=== PATIENT | male | born 1985 | race Hispanic/Latino ===

== ENCOUNTER 2023-03-14 03:09 | Emergency (ER) | payer SELFPAY ==
--- OUTSIDE RECORDS SUMMARY | 2023-03-14 03:12 | XMS REPORT | Continuity of Care Document ---
:[address] [facility] t Address [address] [place] [address] [place] [id number] Care Team Providers Name Role Phone [place], [place] DEPT OF Primary Care Physician Unavailable GLORIA NAYAK Attending Clinician Unavailable Gloria Shin Attending Clinician GLORIA NAYAK Admitting Clinician Unavailable Problems This patient has no known problems. Allergies, Adverse Reactions, Alerts Allergy Allergy Status Severity Reaction(s) Onset Inactive Treating Comm ents Source Name Type Date Date Clinician NO KNOWN Drug Active [facility] [place] [facility] [place] Social History Social Habit Start Date Stop Date Quantity Comments Source Exposure to 2022-09-18 2022-09-28 Not sure [facility] SARS-CoV-2 (event) 00:00:00 14:07:00 Medica l Branch Sex Assigned At [birth year] [facility] 00:00:00 00:00:00 Medical Branch Smoking Status Start Date Stop Date Source Tobacco smoking consumption [facility] Medical unknown Branch Medications Ordered Filled Start Stop Current Ordering Indication Dosage Frequency Signature Comments Components Source Medication Medication Date Date Medication? Clinician (SIG) Name Name cephALEXin 2022- No [id number] 500mg Take 1 Univers (KEFLEX) 09-28 05-07 capsule by ity of 500 mg 00:00: 04:59 mouth 4 [place] capsule 00 :00 (four) Medical times Branch daily for 5 days. azithromyci Yes 250mg Take 1 Uni vers n 250 mg 9-05 tablet by ity of tablet 00:00: mouth [place] 00 SEE-INSTRU Medical CTIONS. Branch Take 500 mg day 1, then 250 mg days 2 to 5. sodium 2015-05 Yes 1{spray Use 1 Univers chloride 0-25 } [place] in ity of (SALINE 00:00: each [place] NOSE) 0.65 00 nostril as Med ical % nasal needed for Branch spray Pain (scale 4-6). traMADOL 2015-05 Yes 50mg Take 1 Univers (ULTRAM) 50 0-25 tablet by ity of mg tablet 00:00: mouth [place] 00 every 6 Medical (six) Branch hours as needed for Pain (scale 4-6). Max Bauer PA-C / Dion Mccann MD LUCILA# [id number] DPS# [id number] x Lic.# [id number] NPI# [id number] Vital Signs Vital Name Observation Time Observation Value Comments Source Systolic blood 2022-09-28 19:09:00 130 mm[Hg] [facility] Diastolic blood 2022-09-28 19:09:00 73 mm[Hg] [facility] Heart rate 2022-09-28 19:09:00 94 /min [facility] Body temperature 2022-09-28 19:09:00 36.22 [facility] Respiratory rate 2022-09-28 19:09:00 18 /min [facility] Body height 2022-09-28 19:09:00 180.3 cm [facility] Body weight 2022-09-28 19:09:00 79.379 kg [facility] BMI 2022-09-28 19:09:00 24.41 kg/m2 [facility] Oxygen saturation in 2022-09-28 19:09:00 100 /min [facility] Arterial blood by [facility] Pulse oximetry Branch Procedures Procedure Date / Time Performed Performing Clinician Amy e FOREIGN BODY REMOVAL - 2022-09-28 21:52:31 Gloria Nayak [facility] ASSIGNMENT OF BENEFITS 2022-09-28 20:17:37 Doctor Unassigned, No [facility] Name [facility] XR CHEST 2 VW 2022-09-28 19:36:51 Gloria Nayak [facility] NOTICE OF PRIVACY 2022-09-28 18:51:19 Doctor Unassigned, No Univ ersity [facility] PRACTICES Name [facility] Branch CONSENT/REFUSAL FOR 2022-09-28 18:50:52 [facility], [facility] Name [facility] Branch TREATMENT Encounters Start End Encounter Admission Attending Care Care Encounter Source Date/Time Date/Time Type Type Clinicians Facility Department ID 2022-09-28 2022-09-28 Emergency X NAEL [facility] ERT [id number] Univers 14:16:00 17:09:00 GLORIA gonzalez [facility] 2022-09-28 2022-09-28 Emergency Nael [facility] [id number] Univers 14:16:00 17:09:00 Gloria [facility] [id number] i [facility] [id number] [facility] [id number] [facility] 084 Branch Results This patient has no known results.
--- NOTE | 2023-03-14 04:58 | ER ---
Nurse's Notes [facility] Name: Andrey Rice Jr Age: 37 yrs Sex: Male : 1985 Arrival Date: 03/14/2023 Time: 03:09 Bed 6 Private MD: Diagnosis: Unspecified injury of head, initial encounter;Acute fall at home, posterior head injury, mild to moderate with concussion, acute cervical sprain, acute right shoulder contusion Presentation: 03/14 03:14 Chief complaint: EMS states: Pt was at home, his brother went to wake him up. He fell jb4 back, not sure if he had and LOC or injury. Pt was somnolent upon EMS arrival. Coronavirus screen: At this time, the client does not indicate any symptoms associated with coronavirus-19. Ebola Screen: No symptoms or risks identified at this time. Initial Sepsis Screen: Does the patient meet any 2 criteria? No. Patient's initial sepsis screen is negative. Does the patient have a suspected source of infection? No. Patient's initial sepsis screen is negative. Risk Assessment: Do you want to hurt yourself or someone else? Patient reports no desire to harm self or others. Onset of symptoms was March 14, 2023. Transition of care: patient was not received from another setting of care. 03:14 Method Of Arrival: EMS: [facility] jb4 03:14 Acuity: JOSE LUIS 3 jb4 Historical: - Allergies: 03:18 No Known Allergies; jb4 - PMHx: 03:18 Hypertensive disorder; jb4 - Social history:: Smoking status: Patient denies any tobacco usage or history of. Patient uses alcohol, on a daily basis. - Family history:: not pertinent. Screenin:30 [facility] ED Fall Risk Assessment (Adult) History of falling in the last 3 months, jb4 including since admission No falls in past 3 months (0 pts) Confusion or Disorientation No (0 pts) Score/Fall Risk Level 0 - 2 = Low Risk Oriented to surroundings, Maintained a safe environment. Abuse screen: Denies threats or abuse. Nutritional screening: No deficits noted. Tuberculosis screening: No symptoms or risk factors identified. Assessment: 03:30 General: Appears in no apparent distress. comfortable, Behavior is calm, cooperative, jb4 appropriate for age. Pain: Complains of pain in neck, right shoulder Pain does not radiate. Neuro: Level of Consciousness is awake, alert, obeys commands, Oriented to person, place, time, situation. Cardiovascular: Patient's skin is warm and dry. Respiratory: Airway is patent Respiratory effort is even, unlabored, Respiratory pattern is regular, symmetrical. GI: No signs and/or symptoms were reported involving the gastrointestinal system. : No signs and/or symptoms were reported regarding the genitourinary system. EENT: No signs and/or symptoms were reported regarding the EENT system. Derm: Skin is intact, Skin is pink, warm \T\ dry. Musculoskeletal: Circulation, motion, and sensation intact. Range of motion: intact in all extremities. 05:00 Reassessment: Patient appears in no apparent distress at this time. Patient and/or jb4 family updated on plan of care and expected duration. Pain level reassessed. Patient is alert, oriented x 3, equal unlabored respirations, skin warm/dry/pink. Vital Signs: 03:14 BP 126 / 87; Pulse 65; Resp 16; Temp 97.7; Pulse Ox 98% on R/A; Weight 69.85 kg (M); jb4 04:30 BP 141 / 86; Pulse 78; Resp 16; Pulse Ox 100% on R/A; jb4 ED Course: 03:13 Patient arrived in ED. jb4 03:16 Triage completed. jb4 03:18 Tae Baird MD is Attending Physician. sp4 03:18 Arm band placed on right wrist. jb4 03:39 Alcohol Level Sent. wm 03:56 CT Traumagram (Head C Spine CAP wo con) In Process Unspecified. EDMS 04:30 Patient has correct armband on for positive identification. Bed in low position. Call jb4 light in reach. Side rails up X 1. 05:15 Sher Ragland, MERE is Primary Nurse. jb4 05:19 No provider procedures requiring assistance completed. IV discontinued, intact, jb4 bleeding controlled, No redness/swelling at site. Pressure dressing applied. Administered Medications: 04:57 Drug: Ketorolac IVP 30 mg IVP once Route: IVP; Site: right antecubital; jb4 05:15 Drug: Cyclobenzaprine PO 10 mg PO once Route: PO; jb4 Medication: 04:30 VIS not applicable for this client. jb4 Outcome: 04:58 Discharge ordered by . sp4 05:19 Discharged to home ambulatory, with family, jb4 05:19 Condition: stable 05:19 Discharge instructions given to patient, Instructed on discharge instructions, follow up and referral plans. no drinking with medication, no driving heavy equipment, medication usage, Demonstrated understanding of instructions, follow-up care, medications, Prescriptions given X 1, 05:20 Patient left the ED. jb4 Signatures: Dispatcher [employer] EDDE Sher Ragland RN RN jb4 Juanis Riggins Sergey, MD MD sp4 Corrections: (The following items were deleted from the chart) 03:18 03:14 BP 126 / 87; Pulse 65bpm; Resp 16bpm; Pulse Ox 98% RA; jb4 jb4
--- NOTE | 2023-03-14 04:58 | EDPHYS ---
Physician Documentation [facility] Name: Andrey Rice Jr Age: 37 yrs Sex: Male : 1985 Arrival Date: 03/14/2023 Time: 03:09 Bed 6 Private MD: ED Physician Tae Baird HPI: 03/14 03:18 This 37 yrs old Male presents to ER via EMS with complaints of fall, neck sp4 pain, head injury . 03:48 Patient arrives with EMS after fall at home. Reported Alcohol intoxication. Patient sp4 fell backwards and developed headache, neck pain and right shoulder pain. Reported also generalized weakness. . Historical: - Allergies: 03:18 No Known Allergies; jb4 - PMHx: 03:18 Hypertensive disorder; jb4 - Social history:: Smoking status: Patient denies any tobacco usage or history of. Patient uses alcohol, on a daily basis. - Family history:: not pertinent. ROS: 04:59 Constitutional: Negative for fever, chills, and weight loss, positive acute fall, sp4 positive head injury, positive headache, positive right shoulder pain, positive neck pain 04:59 All other systems are negative, Exam: 04:59 Constitutional: This is a well developed, well nourished patient who is awake, alert, sp4 and in no acute distress. Patient arrived with EMS with a c-collar in place Head/Face: Normocephalic, atraumatic. Eyes: Pupils equal round and reactive to light, extra-ocular motions intact. Lids and lashes normal. Conjunctiva and sclera are not injected. Cornea within normal limits. Periorbital areas with no swelling, redness, or edema. ENT: Nares patent. No nasal discharge, no septal abnormalities noted. Tympanic membranes are normal and external auditory canals are clear. Oropharynx with no redness, swelling, or masses, exudates, or evidence of obstruction, uvula midline. Mucous membranes moist. Neck: Trachea midline, no thyromegaly or masses palpated, and no cervical lymphadenopathy. Supple, full range of motion without nuchal rigidity, or vertebral point tenderness. Chest/axilla: Normal chest wall appearance and motion. Nontender with no deformity. No lesions are appreciated. Cardiovascular: Regular rate and rhythm with a normal S1 and S2. No gallops, murmurs, or rubs. Normal PMI, no JVD. No pulse deficits. Respiratory: Lungs have equal breath sounds bilaterally, clear to auscultation and percussion. No rales, rhonchi or wheezes noted. No increased work of breathing, no retractions or nasal flaring. Abdomen/GI: Soft, non-tender, with normal bowel sounds. No distension or tympany. No guarding or rebound. No evidence of tenderness throughout. Back: No spinal tenderness. No costovertebral tenderness. Male : Normal genitalia with no discharge or lesions. Skin: Warm, dry with normal turgor. Normal color with no rashes, no lesions, and no evidence of cellulitis. MS/ Extremity: Pulses equal, no cyanosis. Neurovascular intact. Full, normal range of motion. Neuro: Awake and alert, GCS 15, oriented to person, place, time, and situation. Cranial nerves II-XII grossly intact. Motor strength 5/5 in all extremities. Sensory grossly intact. Psych: Awake, alert, with orientation to person, place and time. Behavior, mood, and affect are within normal limits Vital Signs: 03:14 BP 126 / 87; Pulse 65; Resp 16; Temp 97.7; Pulse Ox 98% on R/A; Weight 69.85 kg (M); jb4 04:30 BP 141 / 86; Pulse 78; Resp 16; Pulse Ox 100% on R/A; jb4 MDM: 03:28 Patient medically screened. sp4 04:50 ED course: CT for Trauma evaluation FINDINGS: Brain: No significant white matter sp4 changes. No focal mass effect. Monsivais-white matter differentiation is within normal limits. No hemorrhage. Ventricles: No ventriculomegaly or midline shift. Extra-axial spaces: No extra-axial collection or hemorrhage. Paranasal sinuses and mastoid air cells: Well-aerated Bones: Unremarkable Soft tissues: Unremarkable IMPRESSION: No evidence of acute intracranial pathology. PROCEDURE: Head C Spine Cap Wo Con CLINICAL HISTORY: fall, head , shoulder injury TECHNIQUE: Contiguous axial CT images obtained through the cervical spine without IV contrast. Coronal and sagittal reformatted images also provided. COMPARISON: None available for comparison FINDINGS: Vertebra: No acute fracture or subluxation. Degenerative changes: Intervertebral disc spaces are fairly well maintained. No critical canal stenosis. Foramina appear patent. Prevertebral soft tissues: Unremarkable Lung apices: Clear IMPRESSION: No acute cervical spine fracture. IPROCEDURE: TECHNIQUE: COMPARISON: No prior exams provided for comparison. FINDINGS: Lungs: No focal consolidation. Airways are patent. Pleura: No effusion. No pneumothorax. Heart and pericardium: The heart is normal in size. No pericardial effusion. Mediastinum and diamond: Evaluation of the mediastinum and vessels is limited without intravenous contrast. Lower neck and chest wall: Unremarkable Vessels: Unremarkable Bones: Unremarkable Evaluation of abdominal viscera is limited without intravenous contrast. Liver: Unremarkable Gallbladder and biliary system: Unremarkable Pancreas: Unremarkable Spleen: Unremarkable Adrenals: Unremarkable Kidneys: No evidence of urolithiasis or obstructive uropathy. Gl : No obstruction. No appreciable mucosal thickening. Appendix: No findings to suggest acute appendicitis. Urinary bladder: Unremarkable Reproductive: Unremarkable as visualized Lymph nodes: No pathologically enlarged lymph nodes. Peritoneum: No focal fluid collection. No free air. Vessels: No abdominal aortic aneurysm. Abdominal wall: Unremarkable Bones: Unremarkable IMPRESSION: No evidence of acute injury in the chest, abdomen or pelvis. Limited evaluation without intravenous contrast.. 04:59 Differential Diagnosis altered mental status, sepsis, flu, Concussion. Data reviewed: sp4 vital signs, nurses notes, EMS record, lab test result(s), radiologic studies, CT scan. Consideration of Admission/Observation Escalation of care including admission/observation considered. ED course: CT head, C-spine, chest, abdomen, pelvis negative for acute evidence of trauma. Patient stable for discharge home, patient was able to stand up and ambulate without difficulty. No signs of neurologic deficits. . 03/14 03:26 Order name: Alcohol Level; Complete Time: 04:14 sp4 03/14 03:25 Order name: CT Traumagram (Head C Spine CAP wo con) sp4 03/14 03:25 Order name: Labs collected and sent; Complete Time: 03:39 sp4 Administered Medications: 04:57 Drug: Ketorolac IVP 30 mg IVP once Route: IVP; Site: right antecubital; jb4 05:15 Drug: Cyclobenzaprine PO 10 mg PO once Route: PO; jb4 Disposition Summary: 03/14/23 04:58 Discharge Ordered Notes: Location: Home sp4 Problem: new sp4 Symptoms: have improved sp4 Condition: Stable sp4 Diagnosis - Unspecified injury of head, initial encounter sp4 - Acute fall at home, posterior head injury, mild to moderate with concussion, acute sp4 cervical sprain, acute right shoulder contusion Followup: sp4 - With: Private Physician - When: 7 - 10 days - Reason: Recheck today's complaints Discharge Instructions: - Discharge Summary Sheet sp4 - Head Injury, Adult sp4 Forms: - Patient Portal Instructions sp4 Prescriptions: - Cyclobenzaprine 10 mg Oral Tablet - take 1 tablet ORAL route every 8 hours As needed; 30 tablet; Refills: 0, sp4 Product Selection Permitted Signatures: Dispatcher [employer] EDSher Khan, RN RN jb4 Tae Baird MD MD sp4 Corrections: (The following items were deleted from the chart) 03:21 03:19 Head Brain Wo Cont+CT.RAD.BRZ ordered. EDMS EDMS 03:22 03:19 C Spine Wo Con+CT.RAD.BRZ ordered. EDMS EDMS 03:30 03:23 Head C Spine Mpr Wo Con ordered. EDMS EDMS
[2023-03-14] MEDS ORDERED: KETOROLAC 30 MG/ML INJ ONE (05:07)
[2023-03-14] MEDS ORDERED: CYCLOBENZAPRINE 10 MG TAB ONE (05:20)
[2023-03-14 05:25] VITALS: TEMP 97.7
[2023-03-14 05:26] VITALS: BP 141/86; O2SAT 100
--- NOTE | 2023-03-15 17:55 | RAD REPORT ---
CLINICAL HISTORY: Fall, head , shoulder injury TECHNIQUE: Contiguous axial CT images obtained through the brain without IV contrast. Coronal and sa gittal reformatted images were provided. This exam was performed according to our departmental dose-optimization program, which includes autom ated exposure control, adjustment of the mA and/or kV according to patient size and/or use of iterati ve reconstruction technique. COMPARISON: None available for comparison FINDINGS: Brain: No significant white matter changes. No focal mass effect. Monsivais-white matter differ entiation is within normal limits. No hemorrhage. Ventricles: No ventriculomegaly or midline shift. Extra-axial spaces: No extra-axial collection or hemorrhage. Paranasal sinuses and mastoid air cells: Well-aerated Bones: Unremarkable Soft tissues: Unremarkable IMPRESSION: No evidence of acute intracranial pathology. EXAM DESCRIPTION: Head C Spine Cap Wo Con CLINICAL HISTORY: Fall, head , shoulder injury TECHNIQUE: Contiguous axial CT images obtained through the cervical spine without IV contrast. Cor onal and sagittal reformatted images also provided. This exam was performed according to our departmental dose-optimization program, which includes autom ated exposure control, adjustment of the mA and/or kV according to patient size and/or use of iterati ve reconstruction technique. COMPARISON: None available for comparison FINDINGS: Vertebra: No acute fracture or subluxation. Degenerative changes: Intervertebral disc spaces are fairly well maintained. No critical canal stenos is. Foramina appear patent. Prevertebral soft tissues: Unremarkable Lung apices: Clear IMPRESSION: No acute cervical spine fracture. IPROCEDURE: Head C Spine Cap Wo Con CLINICAL HISTORY: Fall, head , shoulder injury TECHNIQUE: Contiguous axial images obtained through the chest , abdomen and pelvis without IV contra st. Coronal and sagittal reformatted images provided. This exam was performed according to our departmental dose-optimization program, which includes autom ated exposure control, adjustment of the mA and/or kV according to patient size and/or use of iterati ve reconstruction technique. COMPARISON: No prior exams provided for comparison. FINDINGS: Lungs: No focal consolidation. Airways are patent. Pleura: No effusion. No pneumothorax. Heart and pericardium: The heart is normal in size. No pericardial effusion. Mediastinum and diamond: Evaluation of the mediastinum and vessels is limited without intravenous contra st. Lower neck and chest wall: Unremarkable Vessels: Unremarkable Bones: Unremarkable Evaluation of abdominal viscera is limited without intravenous contrast. Liver: Unremarkable Gallbladder and biliary system: Unremarkable Pancreas: Unremarkable Spleen: Unremarkable Adrenals: Unremarkable Kidneys: No evidence of urolithiasis or obstructive uropathy. Gl : No obstruction. No appreciable mucosal thickening. Appendix: No findings to suggest acute appendicitis. Urinary bladder: Unremarkable Reproductive: Unremarkable as visualized Lymph nodes: No pathologically enlarged lymph nodes. Peritoneum: No focal fluid collection. No free air. Vessels: No abdominal aortic aneurysm. Abdominal wall: Unremarkable Bones: Unremarkable IMPRESSION: No evidence of acute injury in the chest, abdomen or pelvis. Limited evaluation without intravenous contrast. Electronically signed by: Ricky Mistry MD 03/14/2023 4:40 AM CDT Due to temporary technical issues with the PACS/Fluency reporting system, reports are being signed by the in house radiologists without review as a courtesy to insure prompt reporting. The interpreting radiologist is fully responsible for the content of the report.
== END 2023-03-14 05:20 | disposition home or self-care (01) ==
LOC: ER 03:09
DX: S06.0X0A Concussion without loss of consciousness, initial encounter (principal); S13.9XXA Sprain of joints and ligaments of unspecified parts of neck, initial encounter; S40.011A Contusion of right shoulder, initial encounter; W18.30XA Fall on same level, unspecified, initial encounter; Y92.009 Unspecified place in unspecified non-institutional (private) residence as the place of occurrence of the external cause
CPT/HCPCS: 36415; 70450; 71250; 72125; 82077; 96374; 99284

== ENCOUNTER 2024-09-23 17:51 | Emergency (ER) | payer OTHER ==
--- OUTSIDE RECORDS SUMMARY | 2024-09-23 17:55 | XMS REPORT | Continuity of Care Document ---
Author Name Unknown Address [address] [facility] [address] [place] [address] [facility] [address] [facility] [address] [place] [address] Care Team Providers Care Commercial Marketing Specialist Name Role Phone JEROMY JARAMILLO Primary Care Physician UnavailPERRI Corea Attending Clinician Unavailab ALBIN Hensley Attending Clinician Unavailable EVA GIBBS Attending Clinician Unavailable Eva Gibbs NP Attending Clinician [phone] Orlin Hale DO Attending Clinician [phone] Kate Peoples DO Attending Clinician MATT NAYAK Attending Clinician Unavailable Matt Shin Attending Clinician [phone] Kate Peoples DO Admitting Clinician [phone] MATT NAYAK Admitting Clinician Unavailable Payers Payer Name Policy Type Policy Number Effective Date Expirati on Date Source KANIKA Mcgee [employer] 94 9 [id number] 2024 00:00:00 SE Ruff/ CRISTINE THAPA [id number] 2023 00:00:00 [facility] JONES COPAY FOCUS 9 [id number] 2023 00:00:00 Problems Condition Name Condition Details Condition Category Status Onset Date Resolution Date Last Treatment Date Treating Clinician Comments Source 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 2023-05 0 00:00: 00 Cristine hart Altered mental status, unspecifie d altered mental status type Altered mental status, unspecifie d altered mental status type Disease Active 10-14 00:00: 00 [facility] Chronic left shoulder pain Chronic left shoulder pain Disease Active 10-05 00:00: 00 Cristine hart Chronic low back pain Chronic low back pain Disease Active 10-05 00:00: 00 Cristine hart Anxiety Anxiety Disease Active 10-05 00:00: 00 Cristine Taylora hailey Allergies, Adverse Reactions, Alerts Allergy Name Allergy Type Status Severity Reaction(s) Onset Date Inactive Date Treating Clinician Comments Source NO KNOWN ALLERGIE S Drug Class Active [facility] Social History Social Habit Start Date Stop Date Quantity Comments Source History of tobacco use Passive smoker [facility] beverage intake 2024-03-03 00:00:00 2024-03-03 00:00:00 Current drinker of alcohol (finding) [facility] History of Social function 2024-03-03 00:00:00 2024-03-03 00:00:00 [facility] Tobacco use and exposure 2023-10-15 00:00:00 2023-10-15 00:00:00 Smokeless tobacco non-user [facility] Exposure to SARS-CoV-2 (event) 2022-09-18 00:00:00 2022-09-28 14:07:00 Not sure [facility] Sex 2022-07-22 21:26:11 2022-07-22 21:26:11 Male (finding) Cristine Senior - External Sex assigned at 1985 00:00:00 1985 00:00:00 Cristine Kay External Smoking Status Start Date Stop Date Source Tobacco smoking consumption unknown [facility] Smokes tobacco daily 2023-10-15 00:00:00 [facility] Ex-smoker 2023-10-06 00:00:00 2023-10-06 00:00:00 Cristine Carvajal Medications Ordered Medication Name Filled Medication Name Start Date Stop Date Current Medication? Ordering Clinician Indication Dosage Frequency Signature (SIG) Comments Components Source Trazodone HCl 50 MG oral Tablet 2023-05 00:00: 00 Yes [id number] 50mg QD Take 1 tablet (50 mg total) by mouth nightly No driving on medication . Cristine hart Ibuprofen (MOTRIN) 800 MG oral Tablet 2023-05 00:00: 00 Yes [id number] 800mg Take 1 tablet (800 mg total) by mouth every 12 hours as needed for pain Please take with food. Cristine hart busPIRone HCl 5 MG oral Tablet 2023-05 00:00: 00 Yes [id number] 5mg Q.5D Take 1 tablet (5 mg total) by mouth 2 times daily as needed. Cristine hart Trazodone HCl 50 MG oral Tablet 02-20 00:00: 00 03-08 00:00 :00 No [id number] 50mg QD Take 1 tablet (50 mg total) by mouth nightly No driving on medication . Cristine hart ondansetron (ZOFRAN (PF)) injection 4 mg 10-15 23:50: 45 Yes 4mg 4 mg, Slow IV Push, Q6HPRN, Nausea and Vomiting (N/V), Starting on 10/16/23 at 1850, Doses of ondansetro n 16 mg and above need to be administer ed via IV piggyback. For Dose >=24mg ECG monitoring is advisable. [facility] LORazepam (ATIVAN) injection 1 mg 10-15 19:29: 04 Yes 1mg 1 mg, Slow IV Push, Q4HPRN, Starting on 10/16/23 at 1429, Until Discontinu ed, Routine, Agitation, Anxiety [facility]- sulbactam (UNASYN) 3 g in NaCl 0.9% (NS) 100 mL MINI-BAG 10-15 17:30: 00 10-20 17:29 :00 No 3g 3 g, IV Piggyback, Q6H ABX, 20 doses, First dose on 10/16/23 at 1230, Last dose on Gini 10/21/23 at 0630, Administer over 30 Minutes, 100 mL, Reason for Anti-Infec tive: Empiric Therapy for Suspected Infection, Empiric Therapy Site: Respirator y, Duration of therapy: 5 days [facility] acetaminoph en (OFIRMEV) IV piggyback 1,000 mg 10-15 17:30: 00 10-15 17:06 :00 No 1000mg 1,000 mg, IV Piggyback, at 400 mL/hr Administer over 15 Minutes, ONCE, 1 dose, On 10/16/23 at 1230, Routine, Is the patient strict NPO and unable to tolerate oral medication s? Yes [facility] acetaminoph en (TYLENOL) 160 mg/5 mL oral liquid 650 mg 10-15 16:26: 21 Yes 650mg 650 mg, Oral, Q6HPRN, Starting on 10/16/23 at 1126, Until Discontinu ed, Routine, Pain (scale 1-3), Temp > 38.5 C [facility] FENTanyl PF (SUBLIMAZE (PF)) injection 100 mcg 10-15 09:45: 00 10-15 08:59 :00 No 100ug 100 mcg, Slow IV Push, ONCE, 1 dose, On 10/16/23 at 0445, Routine [facility] midazolam (PF) (VERSED) STD 50 mg in NaCl 0.9% (NS) 50 mL infusion RTU 10-15 08:54: 24 10-15 19:29 :15 No 1mg/h 1-10 mg/hr (1-10 mL/hr), IV Infusion, TITRATE, Sedation-R ASS score (-1 to -2), Starting on 10/16/23 at 0354, Initiate infusion at 2 mg/hr and titrate by 1 mg/hr every 3 minutes to 10 minutes to goal sedation score. Maximum dose = 10 mg/hr. If goal not maintained at maximum allowed dose, contact prescriber . [facility] fentaNYL PF (SUBLIMAZE) STD 2,500 mcg in NaCl 0.9% (NS) 250 mL infusion RTU 10-15 08:54: 16 10-15 19:29 :15 No 25ug/h 25-200 mcg/hr (2.5-20 mL/hr), IV Infusion, TITRATE, Sedation-R ASS score (-1 to -2), Starting on Wed10/16/23 at 0354, Initiate infusion at 25 mcg/hr. Titrate by 50 mcg/hr every 1 minute to 15 minutes to identified goal pain and/or sedation scores. Maximum dose = 200 mcg/hr. If goal not maintained at maximum allowed dose, contact prescriber . [facility] famotidine (PEPCID (PF)) injection 20 mg 10-15 01:00: 00 10-20 00:59 :00 No 20mg 20 mg, Slow IV Push, Q12H, 10 doses, First dose on Wed10/15/23 at 2000, Last dose on Wed10/20/23 at 0800, Routine, Indication for use: Mechanical Ventilatio n > 48 hours [facility] glucagon (GLUCAGEN DIAGNOSTIC KIT) injection 1 mg 10-14 23:41: 00 Yes 1mg 1 mg, Intramuscu lar, PRN, Starting on Wed10/15/23 at 1841, Until Discontinu ed, EDWARD, Blood Glucose < or = 70 mg/dL and patient is NPO, unable to swallow or has mental changes. [facility] dextrose 50 % in water (D50W) injection 25 mL 10-14 23:41: 00 Yes 25mL 25 mL, Slow IV Push, PRN, Starting on Wed10/15/23 at 1841, Until Discontinu ed, EDWARD, Blood Glucose < or = 70 mg/dL and patient is NPO, unable to swallow or has mental status changes. [facility] lactated ringers IV infusion 1,000 mL 10-14 23:00: 00 10-16 03:30 :40 No 1000mL at 100 mL/hr, 1,000 mL, IV Infusion, CONTINUOUS , Starting on Wed10/15/23 at 1800, Until 10/16/23 at 2230, Routine [facility] midazolam (VERSED) injection 4 mg 10-14 22:45: 00 10-14 21:59 :00 No 4mg 4 mg, IV Push, ONCE, 1 dose, On Wed10/15/23 at 1745, Routine [facility] midazolam (PF) (VERSED) STD 50 mg in NaCl 0.9% (NS) 50 mL infusion RTU 10-14 22:31: 00 10-14 22:36 :42 No 1mg/h 1-10 mg/hr (1-10 mL/hr), IV Infusion, TITRATE, Sedation-R ASS score (0 to -1), Starting on Wed10/15/23 at 1731, Initiate infusion at 1 mg/hr and titrate by 1 mg/hr every 3 minutes to 10 minutes to goal sedation score. Maximum dose = 10 mg/hr. If goal not maintained at maximum allowed dose, contact prescriber . [facility] enoxaparin (LOVENOX) injection 40 mg 10-14 22:00: 00 Yes 40mg 40 mg, Subcutaneo us, DAILY, First dose on Wed10/15/23 at 1700, Until Discontinu ed, Routine [facility] fentaNYL PF (SUBLIMAZE) STD 2,500 mcg in NaCl 0.9% (NS) 250 mL infusion RTU 10-14 20:23: 20 10-15 08:54 :34 No 25ug/h 25-200 mcg/hr (2.5-20 mL/hr), IV Infusion, TITRATE, Sedation-R ASS score (0 to -1), Starting on Wed10/15/23 at 1523, Initiate infusion at 25 mcg/hr. Titrate by 50 mcg/hr every 1 minute to 15 minutes to identified goal pain and/or sedation scores. Maximum dose = 200 mcg/hr. If goal not maintained at maximum allowed dose, contact prescriber . [facility] NaCl 0.9% (NS) bolus infusion 1,000 mL 10-14 19:30: 00 10-14 21:33 :00 No 1000mL at 999 mL/hr, 1,000 mL, IV Infusion, ONCE, 1 dose, On Wed10/15/23 at 1430, STAT [facility] Trazodone HCl 50 MG oral Tablet 10-05 00:00: 00 Yes [id number] 50mg Take 1 tablet (50 mg total) by mouth nightly No driving on medication . Cristine hart Ibuprofen (MOTRIN) 800 MG oral Tablet 10-05 00:00: 00 03-08 00:00 :00 No [id number] 800mg Take 1 tablet (800 mg total) by mouth every 12 hours as needed for pain. Cristine hart Baclofen 10 MG oral Tablet 10-05 00:00: 00 03-08 00:00 :00 No [id number] 10mg Q.[id number] 3D Take 1 tablet (10 mg total) by mouth 3 times daily No driving with medication . Cristine hart cephALEXin (KEFLEX) 500 mg capsule 09-28 00:00: 00 10-04 04:59 :00 No [id number] 500mg Take 1 capsule by mouth 4 (four) times daily for 5 days. [facility] azithromyci n 250 mg tablet 02-02 00:00: 00 Yes 250mg Take 1 tablet by mouth SEE-INSTRU CTIONS. Take 500 mg day 1, then 250 mg days 2 to 5. [facility] sodium chloride (SALINE NOSE) 0.65 % nasal spray 2015-05 00:00: 00 Yes 1{spray } Use 1 [place] in each nostril as needed for Pain (scale 4-6). [facility] traMADOL (ULTRAM) 50 mg tablet 2015-05 00:00: 00 Yes 50mg Take 1 tablet by mouth every 6 (six) hours as needed for Pain (scale 4-6). Max Bauer PA-C / Dion Mccann MD LUCILA# [id number] DPS# [id number] x Lic.# [id number] NPI# [id number] [facility] Immunizations Ordered Immunization Name Filled Immunization Name Date Status Comments Source TD Pres-Free 2022-09-28 00:00:00 Completed [facility] TD Pres-Free 2022-09-28 00:00:00 Completed [facility] TD Pres-Free Unknown Completed [facility] Td- Tetanus & Diphtheria Vaccine (age 7+ years) Unknown Completed Cristine Kelly d - External Vital Signs Vital Name Observation Time Observation Value Comments S ource Systolic blood pressure 2024-03-08 19:55:00 118 mm[Hg] Cristine Wheelerybo ld - External Diastolic blood pressure 2024-03-08 19:55:00 64 mm[Hg] Cristine Wheelerybo ld - External Heart rate 2024-03-08 19:55:00 106 /min Kel y Seybold - External Body temperature 2024-03-08 19:55:00 36.28 Orly Cristine Wheelerybold - External Body height 2024-03-08 19:55:00 180.3 cm Candie ey Seybold - External Body weight 2024-03-08 19:55:00 70.67 kg Candie ey Seybold - External BMI 2024-03-08 19:55:00 21.73 kg/m2 Candie ey Seybold - External Oxygen saturation in Arterial blood by Pulse oximetry 2024-03-08 19:55:00 98 /min Cristine Munozo ld - External Systolic blood pressure 2024-03-03 03:39:00 137 mm[Hg] [facility] Diastolic blood pressure 2024-03-03 03:39:00 86 mm[Hg] [facility] Heart rate 2024-03-03 03:39:00 87 /min [facility] Body temperature 2024-03-03 03:39:00 36.89 Orly [facility] Respiratory rate 2024-03-03 03:39:00 16 /min [facility] Body height 2024-03-03 03:39:[address] [facility] Body weight 2024-03-03 03:39:[address] [facility] BMI 2024-03-03 03:39:00 20.78 kg/m2 [facility] Oxygen saturation in Arterial blood by Pulse oximetry 2024-03-03 03:39:00 99 /min [facility] Systolic blood pressure 2023-10-17 04:32:00 109 mm[Hg] [facility] Diastolic blood pressure 2023-10-17 04:32:00 73 mm[Hg] [facility] Body temperature 2023-10-17 04:06:00 36.5 Orly [facility] Heart rate 2023-10-17 01:05:00 78 /min [facility] Oxygen saturation in Arterial blood by Pulse oximetry 2023-10-17 01:05:00 100 /min [facility] Respiratory rate 2023-10-17 00:32:00 17 /min [facility] Body height 2023-10-15 19:18:[address] [facility] Body weight 2023-10-15 19:18:[address] [facility] BMI 2023-10-15 19:18:00 29.12 kg/m2 [facility] Systolic blood pressure 2023-10-06 16:03:00 128 mm[Hg] Cristine Seybo ld - External Diastolic blood pressure 2023-10-06 16:03:00 82 mm[Hg] Cristine Seybo ld - External Heart rate 2023-10-06 16:03:00 110 /min Kelse y Seybold - External Body temperature 2023-10-06 16:03:00 36.78 Orly Cristine Seybold - External Respiratory rate 2023-10-06 16:03:00 18 /min Cristine Seybold - External Body height 2023-10-06 16:03:00 180.3 cm Candie ey Seybold - External Body weight 2023-10-06 16:03:00 67.246 kg Candie ey Seybold - External BMI 2023-10-06 16:03:00 20.68 kg/m2 Candei ey Seybold - External Oxygen saturation in Arterial blood by Pulse oximetry 2023-10-06 16:03:00 98 /min Cristine Seybo ld - External Systolic blood pressure 2022-09-28 19:09:00 130 mm[Hg] [facility] Diastolic blood pressure 2022-09-28 19:09:00 73 mm[Hg] [facility] Heart rate 2022-09-28 19:09:00 94 /min [facility] Body temperature 2022-09-28 19:09:00 36.22 Orly [facility] Respiratory rate 2022-09-28 19:09:00 18 /min [facility] Body height 2022-09-28 19:09:[address] [facility] Body weight 2022-09-28 19:09:[address] [facility] BMI 2022-09-28 19:09:00 24.41 kg/m2 [facility] Oxygen saturation in Arterial blood by Pulse oximetry 2022-09-28 19:09:00 100 /min [facility] Procedures Procedure Date / Time Performed Performing Clinician Source CREATINE KINASE 2024-03-03 04:26:00 [facility] 2024-03-03 04:26:00 Eva Gibbs [facility] COMP. METABOLIC PANEL ([id number]) 2024-03-03 04:26:00 Eva Gibbs [facility] SALICYLATE 2024-03-03 04:26:00 Eva Gibbs [facility] ETHANOL 2024-03-03 04:26:00 Eva Gibbs [facility] CBC WITH DIFF 2024-03-03 04:25:00 Eva Gibbs [facility] URINALYSIS 2024-03-03 04:25:00 Eva Gibbs [facility] INFLUENZA A/B RSV COVID NAAT 2024-03-03 04:25:00 Eva Gibbs [facility] URINE DRUG (IMMUNOASSAY) - COMPREHENSIVE DRUG SCREEN W/O REFLEX 2024-03-03 04:25:00 Eva Gibbs [facility] POCT GLUCOSE (AUTOMATED) 2023-10-16 21:18:00 Jean Carlos, D [facility] BLOOD CULTURE SCREEN 2023-10-16 17:23:00 Jean Carlos [facility] PROCALCITONIN 2023-10-16 17:23:00 Kate Peoples [facility] LEGIONELLA AND STREPTOCOCCUS PNEUMONIAE URINARY ANTIGENS 2023-10-16 17:23:00 Jean Carlos [facility] POCT GLUCOSE (AUTOMATED) 2023-10-16 16:36:00 Flavia Peoples [facility] POCT GLUCOSE (AUTOMATED) 2023-10-16 13:20:00 Flavia Peoples [facility] XR CHEST 1 VW 2023-10-16 11:19:05 Kate Peoples [facility] ACUTE CARE ARTERIAL BLOOD GAS 2023-10-16 09:37:00 Jean Carlos [facility] MAGNESIUM 2023-10-16 09:12:00 Kate Peoples [facility] BASIC METABOLIC PANEL (NA, K, CL, CO2, GLUCOSE, BUN, CREATININE, CA) 2023-10-16 09:12:00 Jean Carlos [facility] CBC WITH DIFF 2023-10-16 09:12:00 Kate Peoples [facility] POCT GLUCOSE (AUTOMATED) 2023-10-16 09:07:00 Flavia Peoples [facility] POCT GLUCOSE (AUTOMATED) 2023-10-16 05:47:00 Flavia Peoples [facility] POCT GLUCOSE (AUTOMATED) 2023-10-16 05:44:00 Flavia Peoples [facility] HB ECG ROUTINE & RHYTHM STRIP 2023-10-16 00:45:23 Jean Carlos [facility] POCT GLUCOSE (AUTOMATED) 2023-10-16 00:28:00 Flavia Peoples [facility] GLYCOSYLATED HEMOGLOBIN (A1C) 2023-10-16 00:23:00 Jean Carlos [facility] XR KUB 2023-10-15 23:56:29 Kate Peoples [facility] MRSA / MSSA SCREEN BY PCR, BLANK 2023-10-15 23:03:00 Jean Carlos [facility] POCT GLUCOSE (AUTOMATED) 2023-10-15 22:07:00 Flavia Peoples [facility] XR CHEST 1 VW 2023-10-15 20:05:00 Singer [facility] AC PANEL 20 + LACTIC ACID 2023-10-15 20:04:00 Singer [facility] CT CERVICAL SPINE WO CONTRAST 2023-10-15 19:50:24 Singer [facility] CT HEAD WO CONTRAST 2023-10-15 19:50:24 Gracy Hale [facility] URINALYSIS 2023-10-15 19:30:00 Hale, [facility] URINE DRUG (IMMUNOASSAY) - COMPREHENSIVE DRUG SCREEN W/O REFLEX 2023-10-15 19:30:00 Singer [facility] COMP. METABOLIC PANEL ([id number]) 2023-10-15 19:27:00 Singer [facility] SALICYLATE 2023-10-15 19:27:00 Singer [facility] ETHANOL 2023-10-15 19:27:00 Hale, [facility] CBC WITH DIFF 2023-10-15 19:27:00 [facility] EKG-12 LEAD 2023-10-15 19:21:58 Kate Peoples [facility] FOREIGN BODY REMOVAL - EMBEDDED 2022-09-28 21:52:31 Matt Nayak [facility] ASSIGNMENT OF BENEFITS 2022-09-28 20:17:37 Docto r Unassigned, [place] [facility] XR CHEST 2 VW 2022-09-28 19:36:51 Matt Nayak [facility] NOTICE OF PRIVACY PRACTICES 2022-09-28 18:51:19 Doctor Unassigned, [place] [facility] CONSENT/REFUSAL FOR DIAGNOSIS AND TREATMENT 2022-09-28 18:50:52 Doctor Unassigned, [place] [facility] Encounters Start Date/Time End Date/Time Encounter Type Admission Type Attending [facility] Facility Care Department Encounter ID Source 2024-10-25 15:00:00 2024-10-25 15:00:00 Outpatient PERRI SANDERS [id number] Cristine [facility] 2024-09-21 00:00:00 2024-09-21 00:00:00 Outpatient PERRI SANDERS CRISTINE [id number] Cristine [facility] 2024-08-24 00:00:00 2024-08-24 00:00:00 Outpatient PERRI SANDERS [id number] Cristine [facility] 2024 00:00:00 2024 00:00:00 Outpatient PERRI SANDERS [id number] Cristine [facility] 2024 00:00:00 2024 00:00:00 Outpatient PERRI SANDERS CRISTINE [id number] Cristine [facility] 2024-07-11 00:00:00 2024-07-11 00:00:00 Outpatient PERRI SANDERS CRISTINE [id number] [facility] 2024-06-30 11:00:00 2024-06-30 11:00:00 Outpatient ALBIN ZAMORA CRISTINE [id number] [facility] 2024-06-23 00:00:00 2024-06-23 00:00:00 Outpatient PERRI SANDERS CRISTINE [id number] Cristine [facility] 2024-06-05 10:28:01 2024-06-05 10:28:01 Outpatient SFA SFA [id number] Sherwin F Parminder 2024-06-04 00:00:00 2024-06-04 00:00:00 Outpatient PERRI SANDERS CRISTINE [id number] [facility] 2024-05-08 00:00:00 2024-05-08 00:00:00 Outpatient PERRI SANDERS CRISTINE [id number] Cristine [facility] 2024-04-07 14:00:00 2024-04-07 14:00:00 Outpatient PERRI SANDERS [facility]ST[facility] [id number] [facility] 2024-03-23 09:11:59 2024-03-23 09:11:59 Outpatient SFA SFA [id number] Sherwin F Parminder 2024-03-15 00:00:00 2024-03-15 00:00:00 Outpatient PERRI SANDERS [id number] Cristine [facility] 2024-03-08 15:00:00 2024-03-08 15:00:00 Outpatient PERRI SANDERS [id number] Cristine [facility] 2024-03-02 22:42:00 2024-03-03 02:52:00 Emergency X EVA GIBBS [facility] ERT [id number] [facility] 2024-03-02 22:42:00 2024-03-03 02:52:00 Emergency Eva Gibbs [facility] [id number] [facility] 2024-02-18 00:00:00 2024-02-18 00:00:00 Outpatient PERRI SANDERS CRISTINE [id number] [facility] 2024-02-17 15:45:16 2024-02-17 15:45:16 Outpatient [facility] [id number] Sherwin Zurita 2023-11-09 13:30:00 2023-11-09 13:30:00 Outpatient PERRI SANDERS CRISTINE [id number] Cristine [facility] 2023-11-05 00:00:00 2023-11-05 00:00:00 Outpatient PERRI SANDERS CRISTINE DEAN [id number] Cristine [facility] 2023-11-02 00:00:00 2023-11-02 00:00:00 Outpatient PERRI SANDERS CRISTINE DEAN [id number] Cristine [facility] 2023-10-15 14:25:00 2023-10-16 23:45:00 Hospital Encounter Orlin Hale David [facility] [id number] [facility] 2023-10-06 11:00:00 2023-10-06 11:00:00 Outpatient PERRI SANDERS CRISTINE [id number] Cristine Senior 2023-09-27 17:20:03 2023-09-27 17:20:03 Outpatient [facility] [id number] Sherwin Zurita 2022-09-28 14:16:00 2022-09-28 17:09:00 Emergency X MATT NAYAK [facility] ERT [id number] [facility] 2022-09-28 14:16:00 2022-09-28 17:09:00 Emergency Matt Nayak B [facility] [id number] [facility] Results Test Description Test Time Test Comments Results Result Co mments Source [facility] 05:28:37* Test Item Value Reference Range Interpretation Comme nts ACETAMINOP (test code = 7078913635) 10.0-30.0 L MIGUEL (test code = MIGUEL) Toxic: Greater rebecca n 200 ug/mL @ 4 hour post ingestion or greater than 50 ug/mL @ 12 hour post ingestion Lab Interpretation (test code = 72056-5) Abnormal [facility]2024-10-04 05:28:32 SALICYLATE<10mg/L1 12:28 AM [facility]: ? Analgesic and Antipyretic Use ? 20- 100 mg/L ? ? Anti-Inflammatory Use ?100-250 mg/L Toxic Range: ? Greater than 300 [facility]Eth[facility] (ETOH) [id number] 05:26:16* Test Item Value Reference Range Interpretation Comme nts ALCOHOL (test code = 4510109113) 77 mg/dL MIGUEL (test code = MIGUEL) <10 [id number] Toxic>100 Depression of GOAT HERDER>400 Fatalities Reported [facility] ([id number]) 2024-03-03 05:25:36* Test Item Value Reference Range Interpretation Comme nts NA (test code = 2554770779) 137 mmol/L 135-145 K (test code = 3122346320) 4.1 mmol/L 3.5-5.0 CL (test code = 7428641838) 104 mmol/L 98-108 CO2 TOTAL (test code = 8969209145) 23 mmol/L 23-31 AGAP (test code = 4912746569) 10 2-16 BUN (test code = 2940907721) 15 mg/dL 7-23 GLUCOSE (test code = 1355051350) 89 mg/dL 70-110 CREATININE (test code = 2160-0) 0.79 mg/dL 0.60-1.25 TOTAL BILI (test code = 3181806757) 0.8 mg/dL 0.1-1.1 CALCIUM (test code = 4204030639) 9.2 mg/dL 8.6-10.6 T PROTEIN (test code = 4308949007) 7.0 g/dL 6.3-8.2 ALBUMIN (test code = 2907834338) 4.2 g/dL 3.5-5.0 ALK PHOS (test code = 1543814036) 85 U/L 34-122 ALTv (test code = 1742-6) 16 U/L 5-50 AST(SGOT) (test code = 7862401065) 23 U/L 13-40 eGFR (test code = 16930-6) 116.6 mL/min/1.73m2 CKD-EPI eGFR (20 21). Assuming creatinine has been stable day-to-day for at least three months, the eGFR indicates Category G1 (>= 90 mL/min/1.73 m2) [facility] [id number] 05:25:16* Test Item Value Reference Range Interpretation Comme nts CK (test code = 0470831766) 132 U/L 33-194 Lab Interpretation (test cod e = 86777-3) [facility] CHE[facility] 1 [id number] 23:13:31EXAM: XR CHEST 1 VW COMPARISON: Chest x-ray 523 HISTORY: shortness of breath FINDINGS: Lines/Devices: The endotracheal tube tip projects 3 cm above the darion.Gastric tube courses into the abdomen with the side port projecting in theexpected region of the gastroesophageal junction and the tip over thegastric body. Lungs: The lungs are adequately expanded. No focal opacities or pleuralabnormality. Heart/Mediastinum: The cardiac silhouette appears normal accounting fortechnique and degree of inspiration. Bones and soft tissues: No osseous abnormality is visualized.[facility] GLUCOSE (AUTOMATED)2023-10-16 21:19:17* Test Item Value Reference Range Interpretation Comme nts POCT GLU (test code = 5328669449) 70 mg/dL 70-110 Lab Interpretation (test cod e = 53252-3) Normal [facility] GLUCOSE (AUTOMATED)2023-10-16 16:37:42* Test Item Value Reference Range Interpretation Comme nts POCT GLU (test code = 2707965687) 74 mg/dL 70-110 Lab Interpretation (test cod e = 44778-5) [facility] 1 [id number] 15:18:01ORDERING PROVIDER: TATE PEOPLES HISTORY: Intubated Portable TECHNIQUE: Frontal views of the Chest.COMPARISON: Chest radiograph 09/28/2022 (report only) FINDINGS:The endotracheal tube terminates 9.3 mm from the darion. Esophagogastrictube terminates in the stomach with the distal side-port at or slightlyabove the GE junction. No focal consolidation, effusion, or pneumothorax. Central pulmonaryvasculature and cardiac silhouette are within normal limits. There ismildly coarsened appearance of the pulmonary interstitial markings. Noacute bony abnormality.[facility] GLUCOSE (AUTOMATED) 2023-10-16 13:20:40* Test Item Value Reference Range Interpretation Comme nts POCT GLU (test code = 9685248387) 86 mg/dL 70-110 Lab Interpretation (test cod e = 95593-2) Normal [facility] GLUCOSE (AUTOMATED)2023-10-16 09:08:44* Test Item Value Reference Range Interpretation Comme nts POCT GLU (test code = 4331307167) 76 mg/dL 70-110 Lab Interpretation (test cod e = 09140-7) Normal [facility] GLUCOSE (AUTOMATED)2023-10-16 05:48:39* Test Item Value Reference Range Interpretation Comme nts POCT GLU (test code = 7416108752) 85 mg/dL 70-110 Lab Interpretation (test cod e = 08110-3) Normal [facility] GLUCOSE (AUTOMATED)2023-10-16 05:46:13* Test Item Value Reference Range Interpretation Comme nts POCT GLU (test code = 5205982636) 61 mg/dL 70-110 L Lab Interpretation (test cod e = 47287-9) Abnormal [facility] GLUCOSE (AUTOMATED)2023-10-16 00:29:53* Test Item Value Reference Range Interpretation Comme nts POCT GLU (test code = 2674511023) 84 mg/dL 70-110 Lab Interpretation (test cod e = 85187-0) [facility] [id number] 00:15:39ORDERING PHYSICIAN:KATE ALEXANDER CLINICAL INFORMATION: ? reassess ogt placement COMPARISON: None Technique: ? 2 frontal views of the abdomen Findings: OG tube is seen in place with tip in the most proximal stomach. Thesidehole is still located in the distal thoracic esophagus. Lung bases areclear. Bowel gas pattern is nonobstructive. There is no evidence of freeair.[facility] GLUCOSE (AUTOMATED)2023-10-15 22:08:53* Test Item Value Reference Range Interpretation Comme nts POCT GLU (test code = 7783099376) 87 mg/dL 70-110 Lab Interpretation (test cod e = 92453-3) [facility] StationAcetaminophen2024-05-17 20:08:29* Test Item Value Reference Range Interpretation Comme nts ACETAMINOP (test code = 0142362289) 10.0-30.0 L MIGUEL (test code = MIGUEL) Toxic: Greater rebecca n 200 ug/mL @ 4 hour post ingestion or greater than 50 ug/mL @ 12 hour post ingestion Lab Interpretation (test code = 41895-9) Abnormal [facility] StationEthanol2024-05-17 20:08:23 ALCOHOL<10mg/dL10/15/2023 3:08 PM [facility]<10 Enczksyk14-831 Toxic>100 Depression of GOAT HERDER>400 Fatalities ReportedUnMemorial Hermann Katy HospitalSalicylate2024-05-17 20:08:18SALICYLATE<10mg/L10/15/2023 3:08 PM [facility]rapeutic Range: ? Analgesic and Antipyretic Use ? 20-100 mg/L ? ? Anti-Inflammatory Use ? 100-250 mg/L Toxic Range: ? Greater than 300 mg/LUnMemorial Hermann Katy HospitalComp. Metabolic Panel (33562) 2023-10-15 20:06:55* Test Item Value Reference Range Interpretation Comme nts NA (test code = 7701184619) 139 mmol/L 135-145 K (test code = 9192229029) 4.0 mmol/L 3.5-5.0 CL (test code = 2694122638) 106 mmol/L 98-108 CO2 TOTAL (test code = 9778787273) 27 mmol/L 23-31 AGAP (test code = 6101599393) 6 2-16 BUN (test code = 8692496902) 11 mg/dL 7-23 GLUCOSE (test code = 2850061874) 95 mg/dL 70-110 CREATININE (test code = 2160-0) 0.66 mg/dL 0.60-1.25 TOTAL BILI (test code = 7687702790) 1.2 mg/dL 0.1-1.1 H CALCIUM (test code = 4182628571) 8.8 mg/dL 8.6-10.6 T PROTEIN (test code = 1169312121) 6.5 g/dL 6.3-8.2 ALBUMIN (test code = 8106105509) 3.7 g/dL 3.5-5.0 ALK PHOS (test code = 4729859628) 111 U/L 34-122 ALTv (test code = 1742-6) 16 U/L 5-50 AST(SGOT) (test code = 6209846905) 20 U/L 13-40 eGFR (test code = 18279-4) 123.1 mL/min/1.73m2 CKD-EPI eGFR (2020). Assuming creatinine has been stable day-to-day for at least three months, the eGFR indicates Category G1 (>= 90 mL/min/1.73 m2) Lab Interpretation (test code = 19874-1) Abnormal [facility] StationCT HEAD WO [id number] 20:04:10EXAM: CT HEAD WO CONTRAST, CT CERVICAL SPINE WO CONTRAST HISTORY: 38 years-old Male; Provided indication: Head trauma, focal neurofindings. TECHNIQUE: Axial CT of the head and cervical spine was performed. [place] sagittal reformatted images were generated. COMPARISON: None HEAD FINDINGS: The ventricles and cerebral sulci are normal in caliber and configuration.No midline shift or pathologicalextra-axial fluid collection is present.The basal cisterns are unremarkable. No acute intracranial hemorrhage or significant mass effect is visualized.No parenchymal attenuation abnormality is seen. The cali-white matterdifferentiation is preserved. The mastoid air cells and visualized paranasal air sinuses are clear. Thecalvarium and central skull base are unremarkable. CERVICAL SPINE FINDINGS: No acute fracture or traumatic dislocation is visualized. Thecraniocervical junction is intact. Normal cervical lordosis is preserved.The vertebral bodies are normal in height and in normal alignment.Theintervertebral disc spaces are preserved. The visualized lung apices are clear. The prevertebralsoft tissues appearunremarkable. The endotracheal tube is within the trachea and the gastric tube is withinthe esophagus.[facility]AST 2023-10-15 20:04:10EXAM: CT HEAD WO CONTRAST, CT CERVICAL SPINE WO CONTRAST HISTORY: 38 years-old Male; Provided indication: Head trauma, focal neurofindings. TECHNIQUE: Axial CT of the head and cervical spine was performed. Coronaland sagittal reformatted images were generated. COMPARISON: None HEAD FINDINGS: The ventricles and cerebral sulci are normal in caliber and configuration.No midline shift or pathologicalextra-axial fluid collection is present.The basal cisterns are unremarkable. No acute intracranial hemorrhage or significant mass effect is visualized.No parenchymal attenuation abnormality is seen. The cali-white matterdifferentiation is preserved. The mastoid air cells and visualized paranasal air sinuses are clear. Thecalvarium and central skull base are unremarkable. CERVICAL SPINE FINDINGS: No acute fracture or traumatic dislocation is visualized. Thecraniocervical junction is intact. Normal cervical lordosis is preserved.The vertebral bodies are normal in height and in normal alignment.Theintervertebral disc spaces are preserved. The visualized lung apices are clear. The prevertebralsoft tissues appearunremarkable. The endotracheal tube is within the trachea and the gastric tube is withinthe esophagus.[facility] with [id number] 19:50:51* Test Item Value Reference Range Interpretation Comme nts WBC (test code = 6690-2) 4.51 4.20-10.70 RBC (test code = 789-8) 5.14 4.26-5.52 HGB (test code = 718-7) 15.1 g/dL 12.2-16.4 HCT (test code = 4544-3) 43.8 % 38.4-49.3 MCV (test code = 787-2) 85.2 fL 81.7-95.6 MCH (test code = 785-6) 29.4 pg 26.1-32.7 MCHC (test code = 786-4) 34.5 g/dL 31.2-35.0 RDW-SD (test code = 99823-7) 36.9 fL 38.5-51.6 L RDW-CV (test code = 788-0) 11.9 % 12.1-15.4 L PLT (test code = 777-3) 193 150-328 MPV (test code = 78886-2) 10.9 fL 9.8-13.0 NRBC/100 WBC (test code = 0109896394) 0.0 0.0-10.0 NRBC x10^3 (test code = 6857604195) See_Comment [Automated [employer]] The system which generated this result transmitted reference range: 10*3/?L. The reference range was not used to interpret this result as normal/abnormal. GRAN MAT (NEUT) % (test code = 770-8) 61.7 % IMM GRAN % (test code = 5198740098) 0.20 % LYMPH % (test code = 736-9) 25.9 % MONO % (test code = 5905-5) 10.9 % EOS % (test code = 713-8) 0.9 % BASO % (test code = 706-2) 0.4 % GRAN MAT x10^3(ANC) (test code = 8653548758) 2.78 10*3/uL 1.99-6.95 IMM GRAN x10^3 (test code = 2812995792) 0.00-0.06 LYMPH x10^3 (test code = 731-0) 1.17 10*3/uL 1.09-3.23 MONO x10^3 (test code = 742-7) 0.49 10*3/uL 0.36-1.02 EOS x10^3 (test code = 711-2) 0.04 10*3/uL 0.06-0.53 L BASO x10^3 (test code = 704-7) 0.01-0.09 Lab Interpretation (test code = 22733-7) Abnormal [facility] History and Physical Notes Date/Time Note Provider Source 2023-10-15 18:29:12 Medicine History & Physical Date of Service: 10/15/2023 Pt presents from: Home CC: Altered mental status History of Present Illness: Jerome Grace is a 38 year old male with past md hx of posttraumatic stress disorder, anxiety, schizophrenia, bipolar disorder, polysubstance abuse and chronic back pain that presents to the ED for acute encephalopathy. Patient is intubated and sedated at time of exam so history is by ex-girlfriend. Per family member he was drinking heavily yesterday she brought him home from a family member's house he slept approximately 4 hours and then she had to take her children to school and she went to work. She came back approximately noon and found them to be on the ground in the bathroom in poor shape. Due to this she decided to call 911. Per EMS they were called out for fall is found to have altered mental status with pinpoint pupils. In the field he was fighting EMS so they gave him 300 mg of ketamine IM then he was intubated in the field for airway protection. In the ED patient had to be sedated as he became agitated and was swinging at nursing staff. Family initially concerned that he took trazodone and baclofen as he takes this for his chronic pain. In the emergency department he was sedated once again for severe agitation. He was noted to be afebrile hemodynamically stable. Initial labs show no leukocytosis. Initial chemistry shows an elevated T. bili of 1.2 mg/dL. LFTs are normal. Urine tox screen positive for methamphetamines along with cocaine and benzodiazepines (He was given benzodiazepines in the field). Screening tox for Tylenol is negative along with salicylates. He did have a CT of cervical spine along with CT of head as outlined below. No acute process seen in either 1. Chest x-ray as outlined below. Hospitalist called for admission On exam patient is sedated on coming up to the floor he awoke and had 2 of the nursing staff. Given Versed with significant improvement in agitation. Per girlfriend he does take baclofen and trazodone of unclear dose. He does drink, he does take drugs, he is a smoker. ROS: Unable to obtain Review of Hx/Meds: PMH: Past Medical History: Diagnosis Date Back pain Bipolar disorder, unspecified Polysubstance abuse PTSD (post-traumatic stress disorder) Schizophrenia, unspecified PSH: has no past surgical history on file. Family Hx: Noncontributory unless mentioned above Social History Tobacco Use Smoking status: Every Day Types: Cigarettes Passive exposure: Current Smokeless tobacco: Never Substance Use Topics Alcohol use: Yes Drug use: Yes Current Scheduled Medications Current IV Current Facility-Administered Medications: enoxaparin (LOVENOX) injection 40 mg, 40 mg, Subcutaneous, DAILY, Kate Peoples DO, 40 mg at 10/15/23 1720 famotidine (PEPCID (PF)) injection 20 mg, 20 mg, Slow IV Push, Q12H, Kate Peoples DO famotidine (PEPCID AC) tablet 20 mg, 20 mg, Oral, BID, Orlin Hale DO fentaNYL PF (SUBLIMAZE) STD 2,500 mcg in NaCl 0.9% (NS) 250 mL infusion RTU, 25-200 mcg/hr, IV Infusion, TITRATE, Orlin Hale DO, Last Rate: 15 mL/hr at 10/15/23 1506, 150 mcg/hr at 10/15/23 1506 lactated ringers IV infusion 1,000 mL, 1,000 mL, IV Infusion, CONTINUOUS, Kate Peoples DO, Last Rate: 100 mL/hr at 10/15/23 1709, 1,000 mL at 10/15/23 1709 midazolam (PF) (VERSED) STD 50 mg in NaCl 0.9% (NS) 50 mL infusion RTU, 1-10 mg/hr, IV Infusion, TITRATE, Kate Peoples DO Objective: Vitals: Vitals: 10/15/23 1630 10/15/23 1655 10/15/23 1700 10/15/23 1800 BP: (!) 140/90 122/78 105/68 Pulse: 67 66 79 76 Resp: 14 16 14 14 Temp: 35.8 ?C (96.5 ?F) 36.3 ?C (97.3 ?F) 36.3 ?C (97.3 ?F) TempSrc: Bladder Bladder SpO2: 99% 96% 97% 98% Weight: Height: I/O's: No intake or output data in the 24 hours ending 10/15/23 1829 Physical Exam: General: NAD, sedated, lying in bed comfortable, intubated HEENT: anicteric, oral mucosa dry Neck: supple, no JVD, no bruits. Chest: CTA B/L, no W/R/C. Heart: RRR, S1/S2, no M/G/R Abdominal: BS normoactive, soft, ND, NT. Skin/Extremities: no rash, no cyanosis, warm and dry, no LE edema. Neurological: Sedated, noted to be able to move all 4 extremities but not following commands Labs: BMP:BMP NA (mmol/L) Date Value 10/15/2023 139 K (mmol/L) Date Value 10/15/2023 4.0 CALCIUM (mg/dL) Date Value 10/15/2023 8.8 CL (mmol/L) Date Value 10/15/2023 106 BUN (mg/dL) Date Value 10/15/2023 11 CREATININE (mg/dL) Date Value 10/15/2023 0.66 GLUCOSE (mg/dL) Date Value 10/15/2023 95 CO2 TOTAL (mmol/L) Date Value 10/15/2023 27 CBC:CBC WBC (10*3/?L) Date Value 10/15/2023 4.51 RBC (10*6/?L) Date Value 10/15/2023 5.14 PLT (10*3/?L) Date Value 10/15/2023 193 HGB (g/dL) Date Value 10/15/2023 15.1 HCT (%) Date Value 10/15/2023 43.8 BMP:Hepatic Function Panel ALBUMIN (g/dL) Date Value 10/15/2023 3.7 T PROTEIN (g/dL) Date Value 10/15/2023 6.5 TOTAL BILI (mg/dL) Date Value 10/15/2023 1.2 (H) ALTv (U/L) Date Value 10/15/2023 16 AST(SGOT) (U/L) Date Value 10/15/2023 20 ALK PHOS (U/L) Date Value 10/15/2023 111 Troponin: There are no current results on file for these tests and/or test for 1 year. I have reviewed all relevant labs Imaging: XR CHEST 1 VW Result Date: 10/15/2023 EXAM: XR CHEST 1 VW COMPARISON: Chest x-ray 523 HISTORY: shortness of breath FINDINGS: Lines/Devices: The endotracheal tube tip projects 3 cm above the darion. Gastric tube courses into the abdomen with the side port projecting in the expected region of the gastroesophageal junction and the tip over the gastric body. Lungs: The lungs are adequately expanded. No focal opacities or pleural abnormality. Heart/Mediastinum: The cardiac silhouette appears normal accounting for technique and degree of inspiration. Bones and soft tissues: No osseous abnormality is visualized. No radiographic evidence of acute cardiopulmonary process. Preliminary Report Dictated by Resident: Brayan Almonte CT HEAD WO CONTRAST Result Date: 10/15/2023 EXAM: CT HEAD WO CONTRAST, CT CERVICAL SPINE WO CONTRAST HISTORY: 38 years-old Male; Provided indication: Head trauma, focal neuro findings. TECHNIQUE: Axial CT of the head and cervical spine was performed. Coronal and sagittal reformatted images were generated. COMPARISON: None HEAD FINDINGS: The ventricles and cerebral sulci are normal in caliber and configuration. No midline shift or pathological extra-axial fluid collection is present. The basal cisterns are unremarkable. No acute intracranial hemorrhage or significant mass effect is visualized. No parenchymal attenuation abnormality is seen. The cali-white matter differentiation is preserved. The mastoid air cells and visualized paranasal air sinuses are clear. The calvarium and central skull base are unremarkable. CERVICAL SPINE FINDINGS: No acute fracture or traumatic dislocation is visualized. The craniocervical junction is intact. Normal cervical lordosis is preserved. The vertebral bodies are normal in height and in normal alignment. The intervertebral disc spaces are preserved. The visualized lung apices are clear. The prevertebral soft tissues appear unremarkable. The endotracheal tube is within the trachea and the gastric tube is within the esophagus. No acute intracranial abnormality. No acute osseous abnormality of the cervical spine. Preliminary Report Dictated by Resident: Kelley Campos MD., have reviewed this study and agree with the above report. CT CERVICAL SPINE WO CONTRAST Result Date: 10/15/2023 EXAM: CT HEAD WO CONTRAST, CT CERVICAL SPINE WO CONTRAST HISTORY: 38 years-old Male; Provided indication: Head trauma, focal neuro findings. TECHNIQUE: Axial CT of the head and cervical spine was performed. Coronal and sagittal reformatted images were generated. COMPARISON: None HEAD FINDINGS: The ventricles and cerebral sulci are normal in caliber and configuration. No midline shift or pathological extra-axial fluid collection is present. The basal cisterns are unremarkable. No acute intracranial hemorrhage or significant mass effect is visualized. No parenchymal attenuation abnormality is seen. The cali-white matter differentiation is preserved. The mastoid air cells and visualized paranasal air sinuses are clear. The calvarium and central skull base are unremarkable. CERVICAL SPINE FINDINGS: No acute fracture or traumatic dislocation is visualized. The craniocervical junction is intact. Normal cervical lordosis is preserved. The vertebral bodies are normal in height and in normal alignment. The intervertebral disc spaces are preserved. The visualized lung apices are clear. The prevertebral soft tissues appear unremarkable. The endotracheal tube is within the trachea and the gastric tube is within the esophagus. No acute intracranial abnormality. No acute osseous abnormality of the cervical spine. Preliminary Report Dictated by Resident: Kelley Campos MD., have reviewed this study and agree with the above report. Assessment and plan: Principal Problem: Altered mental status, unspecified altered mental status type Severe agitation/metabolic encephalopathy: Noted talk screen positive for cocaine and methamphetamine. Possibly also took baclofen with trazodone -Follow-up EKG - Continue Versed for agitation will attempt to wean off overnight Acute respiratory failure: Intubated for airway protection in the setting of encephalopathy - Continue intubation - Plan SBT tomorrow morning - Continue sedation - Wean off oxygen as tolerated - Repeat ABG in morning - Repeat chest x-ray morning - Start gentle IV fluids - Pulmonary consult DVT prophylaxis: Lovenox GI prophylaxis: Famotidine Critical care statement: I have spent 40 minutes of my undivided time on this patient regarding the following critical care diagnosis: Acute respiratory failure secondary to airway management, management of critical labs including ABG, management of vent [place] [employer] was verified Disposition: Await stability T [facility] Notes Date/Time Note Provider Source 2024-03-03 02:43:58 PT LEFT AMA. AMA PAPERS SIGNED BY PATIENT. PT COUNSELED TO REMAIN, BUT PT DECLINED. LEFT AMBULATORY WITH SPOUSE. NO ATAXIA, GCS 15, AO4. PATIENT DENIES ANY SI OR HI AT THIS TIME. SPOUSE AND PATIENT EDUCATED ON THE IMPORTANCE OF PATIENT AND FAMILY SAFETY. Anne Prather RN [facility] 2024-03-03 02:00:48 [facility] called, will call back. [facility] 2024-03-03 01:26:20 SAFE-T Protocol with C-SSRS ([place] Risk and Protective Factors) - Recent Step 1: Identify Risk Factors 1) Wish to be - Have you wished you were or wished you could go to sleep and not wake up? (P) Yes 2) Current suicidal thoughts - Have you actually had any thoughts of killing yourself? (P) Yes 3) Suicidal thoughts w/method- Have you been thinking about how you might do this? (P) Yes 3a) Describe: (P) Attempted hanging self 03/01/2024 4) Suicidal intent without Specific Plan- Have you had these thoughts and had some intention of acting on them? (P) Yes 4a) Describe: (P) Attempted hanging self 03/01/2024 5) Intent with Plan- Have you started to work out or worked out the details of how to kill yourself? Do you intend to carry out this plan? (P) Yes 5a) Describe: (P) Attempted hanging self 03/01/2024 6) C-SSRS Suicidal Behavior - Have you ever done anything, started to do anything, or prepared to do anything to end your life? (P) Yes 6a) Describe: (P) swallowed pills, attempted hanging on 03/01/2024 6b) Was it in the past 3 months? (P) Yes Suggested risk level: (P) High Activating Events: (P) Current or pending isolation or feeling alone Treatment History: (P) Previous psychiatric diagnosis and treatments, Not receiving treatment Clinical Status: (P) Major depressive episode, Mixed affect episode (e.g. Bipolar), Agitation or severe anxiety, Homicidal ideation Access to lethal methods: (P) Yes Other: (P) did not verify firearm in home Step 2: Identify Protective Factors (Protective factors that may not counteract significant acute suicide risk factors) Internal: (P) None External: (P) None Step 3: Specific Questioning About Thoughts, Plans, and Suicidal Intent Frequency - How many times have you had these thoughts? (P) Daily or almost dailly Duration - When you have the thoughts, how long do they last? (P) More than 8 hours/persistent or continuous Controllability - Could/can you stop thinking about killing yourself or wanting to if you want to? (P) Unable to control thoughts Deterrents - Are there things, anyone or anything (e.g. family, anabaptism, pain of ), that stopped you from wanting to or acting on thoughts of suicide? (P) Deterrents definitely did not stop you Reasons for ideation - What sort of reasons did you have for wanting to or kill yourself? Was it to end pain, stop the way you are feeling, or to get attention, revenge or reaction from others? Or both? (P) Mostly to end or stop the pain (you couldn't go on living with the pain or how you were feeling) Stratification: High Suicide Risk Moderate Suicide Risk Low Suicide Risk ?? Suicidal ideation with intent or intent with plan in past month (C-SSRS Suicidal Ideation #4 or #5) Or ?? Suicidal behavior within past 3 months (C-SSRS Suicidal Behavior) ?? Suicidal ideation with method, WITHOUT plan, intent or behavior in past month (C-SSRS Suicidal Ideation #3) Or ?? Suicidal behavior more than 3 months ago (C-SSRS Suicidal Behavior Lifetime) Or ?? Multiple risk factors and few protective factors ?? Wish to or Suicidal Ideation WITHOUT method, intent, plan or behavior (C-SSRS Suicidal Ideation #1 or #2) Or ?? Modifiable risk factors and strong protective factors Or ? No reported history of Suicidal Ideation or Behavior Location / Risk: Inpatient / High: Suicidal ideation with intent and with realistic plan and no protective factors in past month OR suicidal behavior within the past 3 months. Includes suicidal behavior as reason for admission. a. Mitigate the risk for suicide by instituting one-one monitoring, removing objects that pose a risk for self-harm, assessing objects brought into a room by visitors, using safe transportation procedures when moving patient to another part of the unit or another part of the hospital, and performing the checklist recommendations for a safe environment. b. Food tray in plastic or paper containers with plastic utensils (no knives or aluminum cans). c. Transfer to Inpatient Psychiatry facility/Psychiatry Consult once medically cleared. d. Follow-up determined by the inpatient Psychiatric facility. [facility] 2024-03-03 01:15:01 Handoff given to ERT. Pt lying in bed, respirations even and unlabored, no distress noted. Bed locked and lowered with side rail up. Pt understands plan of care and verbalizes understanding. Visitors at bedside. [facility] Christina Taylor RN [facility] 2024-03-03 00:07:09 Pt provided with sandwich tray, pudding and juice per request. Pt sitting in bed, respirations even and unlabored, no distress noted. Bed locked and lowered with side rail up. Pt and family understands plan of care and verbalizes understanding. No medications, labs or interventions due at this time. Visitors at bedside. [facility] 2024-03-02 23:51:59 Pt reports SI/HI. Reports attempt to hang himself on yesterday. Reports SI and HI thoughts change intermittently. Reports auditory hallucinations. Denies voices persuading him to harm others. Previous SI attempt in September. Reports being out of medications since being released from longterm. Does also report right ankle pain. Observed to have a limp with walking. Reports he attempted to kick his suitcase out of the way. [facility] 2024-03-02 23:51:06 [employer] at bedside to discuss POC. [facility] 2024-03-02 23:35:29 Problem: Suicide, Risk of Goal: Absence of self-harm Outcome: Progressing as expected [facility] 2024-03-02 23:29:37 Pt lying in bed, respirations even and unlabored, no distress noted. Currently eating. Bed locked and lowered with side rail up. Pt and family understands plan of care and verbalizes understanding. No medications, labs or interventions due at this time. Visitors at bedside. [facility] 2024-03-02 23:04:30 Provided with warm blanket per request. remains at bedside. [facility] 2024-03-02 22:45:00 Patient and family members educated on emergency department behavioral process and precautions. Educated on need for direct observation, removal of belongings, and clearing of room for patient and staff safety. Patient and family given community resources for outpatient treatment and care. [facility] 2024-03-02 22:35:57 Summary: Triage CC: patient asked if he was having thoughts of hurting himself and others and patient states yes he wants to hurt other. Patient states that the patient tired to hang himself yesterday. states he talks about hurting himself everyday. Patient has been given medications in the past that have helped. PMHx: depression, schizophrenia PSH:none MEDS:none LMP: na Tetanus: UTD Awake, alert, oriented, resp reg unlabored, skin warm, color appropriate for race, moves all ext without difficulty, amb with out assistance Appears in no distress Zahra Aguilar RN [facility] 2023-10-16 23:56:39 Pt left AMA Bianca Pinto RN [facility] 2023-10-16 20:41:22 Problem: Restraint Use Goal: Absence of restraint indications Outcome: Progressing as expected Goal: Absence of restraint-related injury Outcome: Progressing as expected Problem: Respiratory Function - Impaired Goal: Able to cough effectively Outcome: Progressing as expected Goal: Adequate oxygenation Outcome: Progressing as expected Goal: Adequate work of breathing Outcome: Progressing as expected Goal: Patent airway Outcome: Progressing as expected Problem: Falls, Risk of Goal: Absence of falls Outcome: Progressing as expected T [facility] 2023-10-16 08:08:58 Problem: Restraint Use Goal: Absence of restraint indications Outcome: Progressing as expected Goal: Absence of restraint-related injury Outcome: Progressing as expected Problem: Respiratory Function - Impaired Goal: Able to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
[2024-09-23 18:23] LABS: Specific Gravity 1.008 (1.005-1.030); Urine Bilirubin NEGATIVE (Negative); Urine Blood Negative (Negative); Urine Clarity Clear (Clear); Urine Color Light-Yellow (Yellow); Urine Glucose NEGATIVE (Negative); Urine Ketones NEGATIVE (Negative); Urine Microscopic Reflex YN NO UMIC; Urine Nitrite NEGATIVE (Negative); Urine Protein NEGATIVE (Negative); Urine Urobilinogen Normal (Normal); Urine pH 5.5 (5.0-7.0)
[2024-09-23 18:34] LABS: Absolute Basophils 0.1 K/uL (0-0.5); Absolute Eosinophils 0.1 K/uL (0-0.5); Absolute Lymphocytes (CBC) 1.4 K/uL (0.7-4.9); Absolute Monocytes 0.4 K/uL (0.1-1.3); Basophils % 1.2 % (0-1.3); Eosinophils % 2.2 % (0-4.4); Hematocrit 40.8 % (39.6-49.0); Hemoglobin 14.2 g/dL (13.6-17.9); Lymphocytes % 27.1 % (15.3-44.8); MCH 29.4 pg (27.0-35.0); MCHC 34.9 g/dL (32.0-36.0); MCV 84.2 fL (80-100); Monocytes % 8.7 % (3.3-12.3); Neutrophils % 60.8 % (41.7-73.7); Nucleated Red Blood Cells % 0.2 % (0-0); Platelets 196 thou/uL (152-406); RBC Red Blood Cell Count 4.84 M/uL (4.33-5.43); Red Cell Distribution Width 12.9 % (12.1-15.2)
[2024-09-23 18:34] LABS: Barbiturates NEGATIVE (NEGATIVE); Benzodiazepines POSITIVE (NEGATIVE); Cocaine NEGATIVE (NEGATIVE); METHAMPHETAM NEGATIVE (NEGATIVE); Methadone NEGATIVE (NEGATIVE); Opiates NEGATIVE (NEGATIVE); Phencyclidine NEGATIVE (NEGATIVE); THC Cannibis NEGATIVE (NEGATIVE)
[2024-09-23 18:41] LABS: PT Prothrombin Time 10.3 SECONDS (10-13.0); PTT, Activated Partial Thromb 28.7 SECONDS (27.2-37.4); Protime INR 0.9
[2024-09-23 18:50] LABS: Blood O2 Saturation 96.7 % (92-98.5)
--- NOTE | 2024-09-23 18:50 | RAD REPORT ---
EXAMINATION: Head Brain Wo Cont CLINICAL INDICATION: Male, 39 years old.head injury TECHNIQUE: Axial CT images from the skull base to the vertex without intravenous contrast. Coronal an d sagittal reformatted images were created from the data set. One or more of the following dose reduction techniques were used: Automated exposure control, adjustment of the mA and/or kV according to patient size, and/or iterative reconstruction. Unless otherwise specified, incidental findings do not require dedicated imaging follow-up. [id number]. COMPARISON: No prior exam. FINDINGS: INTRACRANIAL: No acute intracranial hemorrhage. No hydrocephalus. No mass effect or midline shift. No significant white matter disease. VASCULATURE: No visualized abnormalities in the arteries or dural venous sinuses. SCALP/SKULL: No calvarial fracture identified. No acute soft tissue abnormality. SINUSES: The visualized paranasal sinuses are mostly clear. No significant mastoid fluid. IMPRESSION: No acute intracranial abnormality. No skull fracture.
[2024-09-23 18:51] LABS: Arterial Blood Carboxyhemoglob 0.3 % (0-1.5); Blood Gas Oxyhemoglobin 94.5 % (94-97); Blood Gas THB 14.6 g/dl (12-18)
[2024-09-23 19:02] LABS: ALT/SGPT 28 U/L (16-61); AST/SGOT 18 U/L (15-37); Albumin 3.5 g/dL (3.4-5.0); Albumin/Globulin Ratio 0.9 (1.1-1.8); Alkaline Phosphatase 120 U/L (45-117); Anion Gap 9.2 mEq/L (5.0-15.0); BUN Blood Urea Nitrogen 11 mg/dL (7-18); Bicarbonate 26 mEq/L (21-32); Bilirubin Total 0.6 mg/dL (0.2-1.0); Globulin 3.7 g/dL (2.3-3.5); Glomerular Filtration Rate 104 ml/min (=/>90); Glucose Level 93 mg/dL (74-106); Potassium 4.2 mEq/L (3.5-5.1); Protein, Total 7.2 g/dL (6.4-8.2); Sodium Level 139 mEq/L (136-145)
[2024-09-23 19:05] LABS: Bilirubin Direct < 0.2 mg/dL (0-0.2); Bilirubin Indirect, Calculated 0.4 mg/dL (0.2-0.8)
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
[2024-09-23] MEDS ORDERED: TRAZODONE 50 MG TABLET ONE (19:15)
[2024-09-23] MEDS ORDERED: carBAMazepine 200 MG TAB ONE (19:19)
[2024-09-23] MEDS ORDERED: BUSPIRONE HCL 5 MG TABLET ONE (19:29)
--- NOTE | 2024-09-25 12:11 | EKG ---
Test Date: 2024-09-23 Test Time: 18:31:37 [employer]: MEASUREMENT RESULTS: Intervals: Rate: 97 SC: 120 QRSD: 82 QT: 318 QTc: 403 [place]: P: 58 SC: 120 QRS: 77 T: 57 INTERPRETIVE STATEMENTS: Normal sinus rhythm Normal ECG Compared to ECG 08/26/2022 13:48:32 Sinus arrhythmia no longer present Electronically Signed On 09-25-24 12:08:21 CDT by Dillan Robison
[2024-09-26 00:28] VITALS: BP 137/79; TEMP 98; O2SAT 100
== END 2024-09-23 23:55 ==
LOC: ER 17:51
DX: R45.851 Suicidal ideations (principal); S09.90XA Unspecified injury of head, initial encounter; F20.9 Schizophrenia, unspecified
CPT/HCPCS: 36415; 36600; 70450; 80048; 80076; 80143; 80179; 80307; 81003; 82077; 82805; 85025; 85610; 85730; 93005; 99285